=== PATIENT | female | born 1955 | race Caucasian/White ===

== ENCOUNTER 2017-11-10 08:00 | Observation (INO) ==
[2017-11-10] MEDS ORDERED: Nitroglycerin 0.4 MG TAB.SUBL SL ONE (08:14)
[2017-11-10] MEDS ORDERED: *HR* Morphine 2 MG/ML SYRINGE ONE (08:45)
[2017-11-10 10:28] LABS: BUN/Creatinine Ratio 30 (6-26); Blood Urea Nitrogen 19 mg/dL (8-23); Calcium 8.9 mg/dL (8.6-10.3); Carbon Dioxide 26 mEq/L (23-29); Chloride 109 mEq/L (98-107); Glucose 110 mg/dL (70-105); Osmolality,Calculated 295 (280-300); Potassium 3.9 mEq/L (3.5-5.1); Sodium 141 mEq/L (136-145); eGFR For African Americans > 60 (> 60); eGFR For Non-African Americans > 60 (> 60)
[2017-11-10 10:29] LABS: Activated Partial Thrombo Time 24.2 Seconds (26.0-36.0); Basophils % 0.4 %; Eosinophils # 0.3 K/mcL (0.0-0.6); Eosinophils % 2.9 %; Hematocrit 41.8 % (35.3-44.9); Hemoglobin 13.3 g/dL (11.5-15.4); INR 0.9; Immature Granulocytes % 0.3 % (0-4); Lymphocytes # 3.8 K/mcL (0.6-4.6); Lymphocytes % 42.8 %; Mean Corpuscular HGB Conc 31.8 g/dL (31.6-35.5); Mean Corpuscular Hemoglobin 27.8 pg (28.0-33.3); Mean Corpuscular Volume 87.4 fL (83.0-100.0); Monocytes # 0.5 K/mcL (0.0-1.3); Monocytes % 5.1 %; Neutrophils # 4.3 K/mcL (1.6-8.9); Platelet Count 268 K/mcL (140-400); Prothrombin Time 10.1 Seconds (9.4-12.1); Red Blood Count 4.78 M/mcL (3.82-4.97); Red Cell Distribution Width 13.7 % (11.5-14.5); Segmented Neutrophils % 48.5 %
[2017-11-10] MEDS ORDERED: Acetaminophen 325 MG TABLET PO PRN (11:59)
[2017-11-10] MEDS ORDERED: Naloxone 0.4 MG/ML INJ IVP PRN (11:59)
[2017-11-10] MEDS ORDERED: Ondansetron ODT 4 MG TAB.RAPDIS SL PRN (11:59)
--- NOTE | 2017-11-10 12:14 | Internal Med History&Physical ---
Date of Encounter: 11/11/17 Time of Encounter: 12:12 Assessment and Plan (1) Chest pain Current visit: Yes Status: Acute ASSESSMENT: - Chest pain due to DD *CAD *Muskuloskeletal CP - myofascial strain, costochondritis *GERD *Esophageal spasm *Cocaine induced *Pericarditis - unlikely *Pneumonia - no infiltrate on CXR PLAN: - Trend cardiac enzymes - EKG now and in AM - ASA - UA - CBCD, BMP in AM - Fasting lipids - Morphine 2 mg IV q 2-4 hr PRN chest pain - Tylenol 650 mg PO q 4-6 hr PRN headache - Home meds (check list) (2) DVT prophylaxis Current visit: Yes Status: Acute We will start a SCD Internal Medicine - H&P: HPI Chief complaint: CP Admitted From: Home Plans for Post Hospital Care: Home History of present illness: Ms. Silva is a 62 year old female with no significant past medical history except for chronic right knee pain secondary to meniscus tear that presented to the ED for left shoulder pain radiating to her left shoulder. And down to her left arm with associated nausea and diaphoresis that started about 3 hours ago. The patient reports since the pain did wake her up from sleep. She denies chest pain weakness abdomen been vomiting back pain, hematuria fever, chills urinary symptoms or any other symptoms and complain. The patient is complaining of mild shortness of breath. She was evaluated by the EMS and given 325 mg of aspirin as well as 2 sublingual nitroglycerin which improved her pain from 8-4. The patient described to the pain as sharp was no alleviating factors or aggravating factors. The patient reports family history of cardiovascular disease. Past Med Surg Social Fam HX - Past Medical History Medical history: no medical history Psychiatric history: no psych history - Social History Smoking Status: Never smoker Smokeless Tobacco Status: No Alcohol use: none Drug use: none - Family History Mother Age: 90 Living Status: Still Living Hx Family Cardiac Disorders: Yes (HTN) Father Living Status: Age at : 78 Cause of : CHF Hx Family Cardiac Disorders: Yes (CHF) Hx Family Endocrine Disorder: Yes (DM) Hx Family Medical Disorders: Yes (Gout) Internal Medicine - H&P: Meds No Known Home Drugs 11/10/17 [History] 3 Allergy/AdvReac Type Severity Reaction Status Date / Time prednisone AdvReac Hallucinati Verified 11/10/17 10:17 ng All Systems PM: A 10-system review of systems was performed and is negative for pertinent findings except as documented above in the HPI. - Constitutional Constitutional: no chills, no fever(s), no night sweats - Cardiovascular Cardiovascular ROS IM: chest pain, no diaphoresis, no dyspnea, no lightheadedness, no palpitations, no syncope - Respiratory Respiratory: no cough, no dyspnea, no wheezing, no excessive phlegm production - Gastrointestinal Gastrointestinal: no abdominal pain, no diarrhea, no hematemesis, no hematochezia, no melena, no nausea, no vomiting - Musculoskeletal Musculoskeletal ROS IM: no numbness, no tingling - Constitutional Vitals: Temp Pulse Resp BP Pulse Ox 97.5 F L 62 16 134/84 99 11/10/17 10:41 11/10/17 10:41 11/10/17 10:41 11/10/17 10:41 11/10/17 10:41 General appearance: Present: A&O X 3 - Head Head exam: Present: atraumatic, normocephalic - Neck Neck exam general surgery: Present: supple, trachea midline. Absent: lymphadenopathy - Respiratory Respiratory exam: Present: CTAB. Absent: accessory muscle use, rales, rhonchi, wheezes - Cardiovascular Cardiovascular exam: Present: RRR, +S1, +S2. Absent: diastolic murmur, gallop, rubs, systolic murmur - GI/Abdominal GI/Abdominal exam: Present: normal bowel sounds, soft, no peritoneal signs. Absent: distended, tenderness - Extremities Exam Extremities exam: Present: warm, radial pulses palpable and symmetrical. Absent : calf tenderness, cyanotic, pedal edema - Neurological Exam Neurological exam: Present: CN II-XII intact, oriented X3, no focal deficits. Absent: pronater drift, facial droop, speech deficit - Skin Skin exam: Present: dry, intact Internal Med - H&P Results - Labs CBC & Chem 7: 11/11/17 02:34 11/10/17 08:15
[2017-11-10 12:55] LABS: Prothrombin Time 10.6 Seconds (9.4-12.1)
[2017-11-10 12:57] LABS: Activated Partial Thrombo Time 24.7 Seconds (26.0-36.0)
[2017-11-10] MEDS: *HR* HYDROcodone/Acet 5/325 mg TABLET PO PRN (12:58)
[2017-11-10 13:00] LABS: Chol/HDL Ratio 4.5 (0-4.9)
[2017-11-10 16:27] LABS: Bilirubin,Urine Negative (Negative); Blood,Urine Negative (Negative); Clarity,Urine Clear (Clear); Color,Urine Yellow (Yellow); Glucose,Urine (UA) Normal (Normal); Ketones,Urine Negative (Negative); Leukocyte Esterase,Urine Small (Negative); Nitrite,Urine Negative (Negative); Protein,Urine Negative (Neg-Trace); Specific Gravity,Urine 1.016 (1.010-1.025); Urobilinogen,Urine Normal (Normal)
[2017-11-10 16:28] LABS: Bacteria,Urine None Seen per hpf (None-Few); Hyaline Casts,Urine None Seen per lpf (None-Few); RBC,Urine 0-3 per hpf (0-3); Squamous Epithelial Cell,Urine Many per lpf (None-Few)
[2017-11-10] MEDS: *HR* Morphine 2 MG/ML SYRINGE IVP PRN (19:50)
[2017-11-10] MEDS ORDERED: Ketorolac 30 MG/ML VIAL IVP ONE (21:02)
--- NOTE | 2017-11-10 21:07 | Event Note ---
Date of Encounter: 11/10/17 Time of Encounter: 21:04 patient complained of worsening pain that is radiating to left scapula. Three troponin levels are negative. Pain is sharp and reducible will palpation in left scalpular region with some edema on the back. Motion of arms and shoulders reproduce severe pain. Patient is guarding her arm from moving. ACS ruled out likely this is musculoskelatal in nature. Check D-dimer, she is low risk for PE at this point does not warrant CTA. Will give patient dose of IV Toradol and 5 mg Flexeril and monitor for improvement.
[2017-11-11 02:42] LABS: Basophils # 0.1 K/mcL (0.0-0.2); Basophils % 0.6 %; Eosinophils # 0.3 K/mcL (0.0-0.6); Eosinophils % 3.1 %; Hematocrit 37.2 % (35.3-44.9); Immature Granulocytes % 0.2 % (0-4); Immature Platelets 2.8 % (1.1-6.1); Lymphocytes % 48.2 %; Mean Corpuscular HGB Conc 32.3 g/dL (31.6-35.5); Mean Corpuscular Hemoglobin 28.3 pg (28.0-33.3); Mean Corpuscular Volume 87.7 fL (83.0-100.0); Mean Platelet Volume 9.9 fL (9.4-12.4); Monocytes # 0.4 K/mcL (0.0-1.3); Monocytes % 4.8 %; Neutrophils # 3.6 K/mcL (1.6-8.9); Platelet Count 243 K/mcL (140-400); Red Blood Count 4.24 M/mcL (3.82-4.97); Red Cell Distribution Width 13.9 % (11.5-14.5); Segmented Neutrophils % 43.1 %
[2017-11-11 02:57] LABS: Magnesium 1.9 mg/dL (1.6-2.6); Phosphorous 3.3 mg/dL (2.7-4.5)
[2017-11-11] MEDS: *HR* HYDROcodone/Acet 5/325 mg TABLET PO PRN ×3 (06:24→18:34)
[2017-11-11] MEDS: *HR* Morphine 2 MG/ML SYRINGE IVP PRN (14:47)
[2017-11-11 15:49] VITALS: BP 138/85
--- NOTE | 2017-11-11 17:55 | Discharge Summary ---
Date of Encounter: 11/11/17 Time of Encounter: 17:51 - Discharge Diagnosis (1) Chest pain Priority: Primary Status: Acute Qualifiers: Chest pain type: unspecified Qualified Code(s): R07.9 - Chest pain, unspecified (2) DVT prophylaxis Priority: Secondary Status: Acute - Discharge Medications Prescriptions: HYDROcodone/Acet 5/325 mg [[place] 5-325 mg] 1 tab PO Q4HR PRN #7 tablet PRN Reason: Moderate Pain (4-6) Home Medications: HYDROcodone/Acet 5/325 mg [[place] 5-325 mg] 1 tab PO Q4HR PRN #7 tablet 11/11/17 [Rx] Allergies/Adverse Reactions: 3 Allergy/AdvReac Type Severity Reaction Status Date / Time prednisone AdvReac Hallucinati Verified 11/10/17 10:17 ng Procedures/tests Complete & Pending: Procedures Performed prior 72 hours Category Date Time Status EKG [ECG 12 lead ECG] [ECG] Routine Y 11/10/17 14:30 Stop Req EKG [ECG 12 lead ECG] [ECG] Routine Y 11/10/17 20:30 Stop Req EKG [ECG 12 lead ECG] [ECG] Routine Y 11/11/17 02:30 Stop Req EV echocardiogram Routine Y 11/11/17 10:00 Completed Date of admission: 11/10/17 10:06 Primary care physician: Marlon Lr MD Discharging clinician: Parker Abbasi - Patient Status Disposition: Home, Self-Care Condition: Fair Functional capacity at discharge: independent ambulation Overall status at discharge: patient is progressing back to baseline - Discharge Instructions Follow Up With: Marlon Lr MD [Primary Care Provider] - - Diet and Activity Activity: increase activity as tolerated Diet: low fat, low cholesterol, low salt diet Interval History: 62-year-old female with no past medical history who works as a sheet metal fabricator in [employer] came [facility] emergency department for left shoulder pain. Patient also claims that she has a pain in her arm. This pain was started 3 hours back. Patient was seen in the emergency room and admitted for chest pain to rule out ACS Hospital course: Patient was hospitalized. 3 troponins were negative. 3 EKGs were within a normal acceptable limits. D-dimer was negative. X-ray chest did not show any abnormality. Patient's pain was much better after the initial pain medication. Echocardiogram was done.Echocardiogram is with in normal limit as per Dr Mccormick. I discussed at length with the patient regarding workup for her left shoulder pain that his left shoulder x-ray and the x-ray of her cervical spine. Being a [place] today patient is not keen for any inpatient workup and would like to see her primary care provider and get these workup done as outpatient. Plan: Patient will be going home today I have given patient pain medication prescription. Patient will see her primary care provider and we need 3 things to follow-up. #1 x-ray left shoulder. #2 x-ray of the cervical spine. #3 patient needs outpatient stress test. I have discussed this plan with the patient and patient's was at the bedside. Along with me are in the colon was present. Patient agreed with the plan and would like to leave hospital as this is a [place] Day today. The time of discharge patient does not have any questions, concerns, updates or recommendation. - Time Spent with Patient Total time spent providing and/or coordinating discharge services: - Constitutional Vitals: Temp Pulse Resp BP Pulse Ox 98.2 F 79 16 138/85 97 11/11/17 15:48 11/11/17 15:48 11/11/17 15:48 11/11/17 15:48 11/11/17 15:48 General appearance: Present: A&O X 3 - Head Head exam: Present: atraumatic, normocephalic - Eye Eye exam: Present: PERRL, conjuntiva pink, sclera anicteric Pupils: Present: PERRL - Neck Neck exam general surgery: Present: supple, trachea midline. Absent: lymphadenopathy - Respiratory Respiratory exam: Present: CTAB. Absent: accessory muscle use, rales, rhonchi, wheezes - Cardiovascular Cardiovascular exam: Present: RRR, +S1, +S2. Absent: diastolic murmur, gallop, rubs, systolic murmur - GI/Abdominal GI/Abdominal exam: Present: normal bowel sounds, soft, no peritoneal signs. Absent: distended, tenderness - Extremities Exam Extremities exam: Present: warm, radial pulses palpable and symmetrical. Absent : calf tenderness, cyanotic, pedal edema - Neurological Exam Neurological exam: Present: CN II-XII intact, oriented X3, no focal deficits. Absent: pronater drift, facial droop, speech deficit - Skin Skin exam: Present: dry, intact
--- NOTE | 2017-11-12 16:40 | Electrocardiograph Report ---
[address] [address] Test Date: 2017-11-10 Pat Name: Courtney Silva Department: 104 Room: 3B23 Gender: F [employer] Instructor: : 1955 Requested By: Sherly Ayala Order Number: [id number] Reading MD: Jose Mccormick MD Measurements Intervals [place] Rate: 76 P: 61 ME: 182 QRS: 55 QRSD: 91 T: 61 QT: 393 QTc: 423 Interpretive Statements SINUS RHYTHM Poor R wave progression Electronically Signed On 11-12-2017 16:38:56 EST by Jose Mccormick MD
--- NOTE | 2017-11-12 16:44 | Electrocardiograph Report ---
[place] [address] Test Date: 2017-11-10 Pat Name: Courtney Silva Department: 113 Room: 3B23 Gender: F Contact Centre Supervisor: : 1955 Requested By: Huma Bradford Order Number: [id number] Reading MD: Jose Mccormick MD Measurements Intervals [place] Rate: 71 P: 59 W[place]: 178 QRS: 50 QRSD: 84 T: 42 QT: 394 QTc: 416 Interpretive Statements SINUS RHYTHM Electronically Signed On 11-12-2017 16:42:38 EST by Jose Mccormick MD
--- NOTE | 2017-11-12 16:45 | Electrocardiograph Report ---
[place] [address] Test Date: 2017-11-10 Pat Name: Courtney Silva Department: 113 Room: 3B23 Gender: Videotape Operator: DANNI : 1955 Requested By: Huma Bradford Order Number: [id number] Reading MD: Jose Mccormick MD Measurements Intervals [place] Rate: 72 P: 55 [place]: 169 QRS: 36 QRSD: 86 T: 30 QT: 387 QTc: 411 Interpretive Statements SINUS RHYTHM WITH SINUS ARRHYTHMIA Electronically Signed On 11-12-2017 16:44:26 EST by Jose Mccormick MD
--- NOTE | 2017-11-12 16:47 | Electrocardiograph Report ---
[place] [id number] Test Date: 2017-11-11 Pat Name: Courtney Silva Department: 113 Room: 3B23 Gender: F [place] Weaver: [id number] : 1955 Requested By: Huma Bradford Order Number: [id number] Reading MD: Jose Mccormick MD Measurements Intervals [place] Rate: 74 P: 60 ND: 188 QRS: 45 QRSD: 83 T: 30 QT: 390 QTc: 417 Interpretive Statements SINUS RHYTHM Electronically Signed On 11-12-2017 16:45:48 EST by Jose Mccormick MD
== END 2017-11-11 18:20 | disposition home or self-care (01) ==
LOC: EMEROO 08:00 → 3BNU 08:00
PROVIDERS: ADMIT Internal Medicine Nephrology; ATTEND Registered Nurse